=== PATIENT | male | born 1935 | race African-American/Black ===

== ENCOUNTER 2017-06-26 20:17 | Inpatient (IN) | payer OTHER, BC ==
[~2017-06-26] VITALS: Ht 188 cm; Wt 102.1 kg
--- NOTE | ~2017-06-26 | EKG ---
[address] [address] ELECTROCARDIOGRAM REPORT Name: NAOMI DENNY Room #: 418-P ADM IN M.R.#: [id number] Admission: 06/27/17 Attend Phys: Theodore Cespedes MD Discharge: Date of : 37 Report #: [id number] THIS REPORT FOR: //name// [facility] ED Test Date: 2017-06-26 Test Time: 20:32:40 Pat Name: NAOMI DENNY Department: Room: [facility] Gender: M Tapper Helper: KOBI : 1935 Requested By: Zhen Gregory Order Number: [id number] MD: Nadir Esquivel Measurements Intervals Rose Rate: 89 P: 58 MD: 212 QRS: -22 QRSD: 94 T: 16 QT: 391 QTc: 476 Interpretive Statements Sinus rhythm Borderline prolonged MD interval Probable left atrial enlargement Borderline left axis deviation Anterior infarct, old Compared to ECG 07/02/2015 23:05:34 Myocardial infarct finding now present Sinus tachycardia no longer present T-wave abnormality no longer present Electronically Signed On 06-27-2017 14:17:09 CDT by Nadir Esquivel [email or web address] <ELECTRONICALLY SIGNED> By: Nadir Esquivel MD 06/27/17 1417 31 31 Nadir Esquivel MD /EPI
--- NOTE | ~2017-06-26 | HC ---
[facility] [address] [address] CONSULTATION Name: NAOMI DENNY JOSEF Room #: 418-P ADM IN M.R.#: [id number] Admission: 06/27/17 Attend Phys: Theodore Cespedes MD Discharge: Date of : 37 Report #: [id number] THIS REPORT FOR: //name// CC: [facility] physician/PCP Theodore Cespedes REASON FOR CONSULTATION: Acute kidney injury. HISTORY OF PRESENT ILLNESS: The details of the history were obtained from the medical chart as the patient is currently having mental status issues and is not able to provide us with history, most of the details of the history were obtained from his medical records. He is an 82-year-old who was just in the hospital back in May of this year. He is known to have diabetes mellitus, hypertension, multiple myeloma with dementia. His baseline creatinine is around 1.5. He lives with his daughter. He was on hospice; however, this had been revoked. He presented with acute mental status changes and was found to be in an acute kidney injury. Creatinine on presentation was found to be around 10 and I was asked to manage his acute kidney injury. On my evaluation, he seems to be extremely dehydrated. I have noted that he was listed to have verapamil, Lasix, ibuprofen, potassium on his medications. He was admitted for further evaluation and management. PAST MEDICAL HISTORY: 1. Hypertension. 2. Methicillin-resistant Staphylococcus aureus. 3. Diabetes mellitus. 4. Obstructive sleep apnea. 5. Multiple myeloma. 6. Hyperlipidemia. 7. Dementia. 8. Recent chemotherapy in 2013, was discontinued. SOCIAL HISTORY: No drug or alcohol abuse. He lives with his daughter. PAST FAMILY HISTORY: Significant for dementia. REVIEW OF SYSTEMS: Unobtainable given the patient's mental status. PHYSICAL EXAMINATION: GENERAL: The patient is disoriented to time, place and person VITAL SIGNS: Temperature 36.7, pulse rate 86, respiratory rate 18. HEAD AND NECK: Dry mucous membrane. CHEST: Clear to auscultation. CARDIOVASCULAR: No rub detected. Regular. ABDOMEN: Soft, nontender. LOWER EXTREMITIES: No edema. [facility] [address] [address] CONSULTATION Name: NAOMI DENNY Room #: 418-P [facility] IN M.R.#: [id number] Admission: 06/27/17 Attend Phys: Theodore Cespedes MD Discharge: Date of : 37 Report #: [id number] LABORATORY DATA: Laboratory values reviewed. Hemoglobin is 11.3. BUN is 98, creatinine is 10.4. UA with leukocytosis esterase however no nitrate. He does have significant urine output on my evaluation today. ASSESSMENT, IMPRESSION, PLAN: 1. Acute kidney injury is due to extreme dehydration. 2. History of hypertension. 3. Diabetes mellitus. 4. Multiple myeloma. 5. Recent hospice that was revoked. 6. The patient's acute kidney injury is well explained by his current volume status. 7. We will initiate appropriate workup. 8. Aggressive IV fluid resuscitation. 9. Strict input and output. 10. Avoid nephrotoxins including ibuprofen. 11. Need to have candid discussions with the family regarding his hospice status. This has been recently revoked for unclear reasons to me. 12. 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 I am not really sure that this is contributing to his current presentation; however, we will keep that in our mind and evaluate his his acute kidney injury. <ELECTRONICALLY SIGNED> By: Froy Marroquin MD 06/28/17 0847 [id number] Froy Marroquin MD /nt
[~2017-06-26 20:17] MED LIST: ADULT LOW DOSE81 MG PO; ALPHAGAN P10 ML OPHTHALMIC; AMLODIPINE BESYL5 M1 PO; AMLODIPINE BESYL5 MG PO; ARICEPT 5 MG TAB5 MG PO; ARICEPT10 M1 PO; ASPIRIN EC81 M1 PO; ASTELIN30 ML; ATORVASTATIN CA10 MG PO; AUGMENTIN 875875 MG PO; BACTRIM 400-801 EACH PO; CARDURA4 MG PO; CEFTIN 250 MG250 MG PO; CELEXA 20 MG TA20 MG PO; CELEXA20 MG PO; CRANBERRY200 MG PO; DEXAMETHASONE 44 M1 PO; DEXAMETHASONE1 MG PO; DOXAZOSIN MESYLA4 MG PO; ENOXAPARIN40 MG/0.1 SUBQ; FISH OIL 1,001000 M2 PO; FLAGYL500 MG PO; FLOMAX0.4 MG PO; GLIPIZIDE 10 MG10 MG PO; GLIPIZIDE ER5 MG PO; GLUCOPHAGE500 MG PO; GLUTOSE GEL 1515 G1 PO; HUMALOG PE100 UNIT/1 SUBQ; HUMALOG PE100 UNIT/M SUBQ; HUMULIN N100 UNIT/1 SC; HUMULINR100 SC; HYDROCODON-ACE1 EAC7 PO; K-DUR 20 MEQ T20 MEQ PO; KLOR-CON 10 ER10 MEQ PO; LANTUS SUBQ; LANTUS100 UNIT/M SUBQ; LASIX 40 MG TAB40 M1 PO; LISINOPRIL-HCT1 EAC2 PO; MAGOX 400400 MG PO; MELATONIN3 MG PO; METRONIDAZOLE500 M4 PO; MIRALAX17 GM PO; NEXIUM40 MG PO; NORCO 5-325 TA1 EACH PO; NORVASC5 MG PO; NOVOLIN N100 UNIT/3; NOVOLOG100 UNIT/1; NOVOLOG100 UNIT/1 SUBQ; OXYBUTYNIN 5 MG5 M1 PO; PERCOCET 5-3251 EACH PO; PHENERGAN 25 MG25 M1 PO; POTASSIUM20 PO; PRINZIDE 20-251 EACH PO; PROBIOTIC1 EAC1 PO; PROMS25 WY RECTAL; PROTONIX40 MG PO; RAPAFLO8 MG PO; TAMSULOSIN HCL0.4 M1 PO; TAMSULOSIN HCL0.4 MG PO; VALCADE; VALIUM5 MG PO; VELCADE3.5 MG IV; VERAPAMIL ER180 M1 PO; VERAPAMIL ER180 MG PO; VERAPAMIL HCL180 M4 PO; VERAPAMIL HCL360 MG PO; VITAMIN D1000 UNI1 PO; VITAMIN D3400 UNIT PO; WELLBUTRIN SR150 MG PO; ZOCOR 20 MG TAB20 M1 PO; ZOFRAN ODT4 MG PO; [UNRECOGNIZED DRUG - REMARK]
[2017-06-26 20:20] VITALS: BP 140/77
[2017-06-26] MEDS ORDERED: LASIX 80 MG TAB80 MG PO (20:29)
[2017-06-26] MEDS ORDERED: IBUPROFEN 200200 M1 PO (20:30)
[2017-06-26] MEDS ORDERED: MELATONIN5 M1 PO (20:30)
[2017-06-26] MEDS ORDERED: POTASSIUM20 PO (20:31)
[2017-06-26] MEDS ORDERED: OXYBUTYNIN 5 MG5 M2 PO (20:31)
[2017-06-26] MEDS ORDERED: ROXANOL T PO (20:32)
[2017-06-26 20:37] LABS: URINE BILIRUBIN NEGATIVE (Negative); URINE BLOOD 2+ (Negative); URINE COLOR YELLOW; URINE GLUCOSE-RANDOM* NEGATIVE (Negative); URINE KETONES NEGATIVE (Negative); URINE LEUKOCYTES-REFLEX 2+ (Negative); URINE PROTEIN (DIPSTICK) 1+ (Negative); URINE UROBILINOGEN 0.2 E.U./dl (0.2-1.0)
[2017-06-26 20:38] LABS: HEMATOCRIT 33.7 % (42.0-52.0); HEMOGLOBIN 11.3 gm/dL (14.0-18.0); MCH 30.8 pg (26.0-34.0); MCHC 33.4 g/dL (28.0-37.0); MCV 92.2 fL (80.0-100.0); RBC 3.66 mil/uL (4.50-6.00); RDW 14.6 % (10.5-14.5)
[2017-06-26 20:46] LABS: ANION GAP 8 mmol/L (7-16); BUN 98 mg/dL (7-18); CALCIUM 9.1 mg/dL (8.5-10.1); CHLORIDE 111 mmol/L (98-107); CO2 24 mmol/L (21-32); CREATININE 10.4 mg/dL (0.7-1.3); GLUCOSE 175 mg/dL (74-106); SODIUM 143 mmol/L (136-145)
[2017-06-26 20:50] LABS: SQUAMOUS 0-3 Few /LPF (0-3); URINE RBC 3-10 Few /HPF (0-2); URINE WBC-REFLEX 6-15 Few /HPF (0-5)
[2017-06-26 20:51] LABS: CASTS None Seen /LPF (None Seen); CRYSTALS None Seen /LPF (None Seen)
[2017-06-26 20:55] LABS: TROPONIN-I < 0.04 ng/mL (<0.04-0.07)
[2017-06-27 02:41] VITALS: BP 124/71
[2017-06-27 03:07] VITALS: BP 139/81
[2017-06-27 07:46] VITALS: BP 132/75
[2017-06-27 09:25] LABS: URINE BILIRUBIN NEGATIVE (Negative); URINE BLOOD 3+ (Negative); URINE COLOR YELLOW; URINE GLUCOSE-RANDOM* NEGATIVE (Negative); URINE KETONES NEGATIVE (Negative); URINE NITRITE NEGATIVE (Negative); URINE PROTEIN (DIPSTICK) TRACE (Negative); URINE UROBILINOGEN 0.2 E.U./dl (0.2-1.0)
[2017-06-27 09:32] LABS: URINE CREATININE-RANDOM* 27.4 mg/dL
[2017-06-27 09:56] LABS: ABSOLUTE NEUTROPHILS 6.7 thou/uL (1.4-8.2); BASOPHILS 0.3 % (0.0-2.0); EOSINOPHILS 0.9 % (0.0-3.0); HEMATOCRIT 33.8 % (42.0-52.0); HEMOGLOBIN 11.2 gm/dL (14.0-18.0); LYMPHOCYTES 16.5 % (24.0-44.0); MCH 30.6 pg (26.0-34.0); MCHC 33.2 g/dL (28.0-37.0); MONOCYTES 8.7 % (1.0-8.0); PLATELET COUNT 197 thou/uL (150-400); POLYS 73.6 % (36.0-66.0); RBC 3.68 mil/uL (4.50-6.00); RDW 14.9 % (10.5-14.5); WBC 9.2 thou/uL (4.0-11.0)
[2017-06-27 10:01] LABS: MANUAL DIFF NO
[2017-06-27 10:14] LABS: CALCIUM 8.7 mg/dL (8.5-10.1); POTASSIUM 4.1 mmol/L (3.5-5.1)
[2017-06-27 10:15] LABS: CREATININE 8.7 mg/dL (0.7-1.3)
[2017-06-27 10:25] LABS: CASTS None Seen /LPF (None Seen); CRYSTALS None Seen /LPF (None Seen); SQUAMOUS None Seen /LPF (0-3)
[2017-06-27 10:26] LABS: URINE RBC 3-10 Few /HPF (0-2); URINE WBC 0-5 Rare /HPF (0-5)
[2017-06-27 10:27] LABS: BACTERIA None Seen /HPF (None Seen)
[2017-06-27 16:43] LABS: TSH 1.308 uIU/mL (0.358-3.740)
[2017-06-27 17:33] VITALS: BP 136/78
[2017-06-27 19:05] VITALS: BP 119/84
[2017-06-28 00:08] VITALS: BP 141/77
[2017-06-28 04:00] VITALS: BP 135/73
[2017-06-28 04:00] LABS: ALBUMIN 2.3 g/dL (3.4-5.0); CALCIUM 7.9 mg/dL (8.5-10.1); PHOSPHORUS 5.4 mg/dL (2.5-4.9); POTASSIUM 3.6 mmol/L (3.5-5.1)
[2017-06-28 04:01] LABS: CREATININE 6.6 mg/dL (0.7-1.3)
[2017-06-28 04:21] LABS: HEMATOCRIT 30.3 % (42.0-52.0); HEMOGLOBIN 10.3 gm/dL (14.0-18.0); MCH 31.3 pg (26.0-34.0); MCHC 33.9 g/dL (28.0-37.0); MCV 92.4 fL (80.0-100.0); RBC 3.28 mil/uL (4.50-6.00); RDW 14.8 % (10.5-14.5); WBC 8.3 thou/uL (4.0-11.0)
[2017-06-28 07:27] VITALS: BP 135/76
[2017-06-28 16:29] VITALS: BP 130/91
[2017-06-28 19:09] VITALS: BP 122/64
[2017-06-29 03:06] VITALS: BP 133/75
[2017-06-29 05:37] LABS: HEMOGLOBIN 9.6 gm/dL (14.0-18.0); MCHC 34.2 g/dL (28.0-37.0); MCV 90.8 fL (80.0-100.0); RBC 3.08 mil/uL (4.50-6.00); RDW 14.2 % (10.5-14.5); WBC 7.8 thou/uL (4.0-11.0)
[2017-06-29 05:49] LABS: ALBUMIN 2.1 g/dL (3.4-5.0); CALCIUM 7.6 mg/dL (8.5-10.1); PHOSPHORUS 4.6 mg/dL (2.5-4.9)
[2017-06-29 05:52] LABS: CREATININE 4.3 mg/dL (0.7-1.3)
[2017-06-29 05:53] LABS: POTASSIUM 2.8 mmol/L (3.5-5.1)
[2017-06-29] MEDS ORDERED: ADULT LOW DOSE81 MG PO (06:50)
[2017-06-29 07:13] VITALS: BP 146/79
[2017-06-29 13:26] LABS: MAGNESIUM 1.7 mg/dL (1.8-2.4); POTASSIUM 3.7 mmol/L (3.5-5.1)
[2017-06-29 15:01] VITALS: BP 108/51
[2017-06-29 19:12] VITALS: BP 147/79
[2017-06-30 03:20] VITALS: BP 135/72
[2017-06-30 08:57] VITALS: BP 125/77
[2017-06-30 09:18] LABS: ALBUMIN 2.3 g/dL (3.4-5.0); CALCIUM 7.7 mg/dL (8.5-10.1); CREATININE 2.6 mg/dL (0.7-1.3); PHOSPHORUS 3.5 mg/dL (2.5-4.9); POTASSIUM 3.1 mmol/L (3.5-5.1)
[2017-06-30 16:15] VITALS: BP 125/77
[2017-06-30 16:55] VITALS: BP 123/63
[2017-06-30 20:00] VITALS: BP 134/82
[2017-07-01 04:00] VITALS: BP 123/74
[2017-07-01 05:49] VITALS: BP 112/80
[2017-07-01 07:24] LABS: ALBUMIN 2.3 g/dL (3.4-5.0); CALCIUM 7.9 mg/dL (8.5-10.1); CREATININE 2.1 mg/dL (0.7-1.3); PHOSPHORUS 3.5 mg/dL (2.5-4.9)
[2017-07-01 07:30] VITALS: BP 134/81
[2017-07-01 11:07] VITALS: BP 125/77
[2017-07-01] MEDS ORDERED: VITAMIN B-12500 MCG PO (13:10)
[2017-07-01] MEDS ORDERED: FOLIC ACID 40400 MCG PO (13:10)
[2017-07-01] MEDS ORDERED: FLOMAX0.4 MG PO (13:10)
[2017-07-01] MEDS ORDERED: LASIX 40 MG TAB40 M2 PO (13:42)
[2017-07-01 15:25] VITALS: BP 125/77
[2017-07-01 15:26] VITALS: BP 125/77
== END 2017-07-01 17:38 | disposition hospice, home (50) | DRG 682 ==
LOC: ER 20:17 → EROBS 06-27 01:51 → 4E 06-27 01:51
PROVIDERS: Emergency Medicine; Hospitalist; Nurse Practitioner Family; Psychiatry & Neurology Neurology
DX: N17.0 Acute kidney failure with tubular necrosis (principal); G93.41 Metabolic encephalopathy; N39.0 Urinary tract infection, site not specified; E87.0 Hyperosmolality and hypernatremia; E44.0 Moderate protein-calorie malnutrition; E78.00 Pure hypercholesterolemia, unspecified; F03.90 Unspecified dementia, unspecified severity, without behavioral disturbance, psychotic disturbance, mood disturbance, and anxiety; F32.9 Major depressive disorder, single episode, unspecified; E78.5 Hyperlipidemia, unspecified; F17.210 Nicotine dependence, cigarettes, uncomplicated; E11.22 Type 2 diabetes mellitus with diabetic chronic kidney disease; I12.9 Hypertensive chronic kidney disease with stage 1 through stage 4 chronic kidney disease, or unspecified chronic kidney disease; N18.9 Chronic kidney disease, unspecified; G47.33 Obstructive sleep apnea (adult) (pediatric); E86.0 Dehydration; D47.2 Monoclonal gammopathy; N13.30 Unspecified hydronephrosis; Z98.42 Cataract extraction status, left eye; Z98.41 Cataract extraction status, right eye; Z87.81 Personal history of (healed) traumatic fracture; Z79.899 Other long term (current) drug therapy; Z86.14 Personal history of Methicillin resistant Staphylococcus aureus infection; Z85.828 Personal history of other malignant neoplasm of skin; Z81.8 Family history of other mental and behavioral disorders; Z79.4 Long term (current) use of insulin; Z68.28 Body mass index [BMI] 28.0-28.9, adult
CPT/HCPCS: 10084